=== PATIENT | male | born 1990 | race Caucasian/White ===

== ENCOUNTER 2025-02-07 19:34 | Emergency (ER) | payer SELFPAY ==
[~2025-02-07] VITALS: Ht 172.7 cm; Wt 170.6 kg
[~2025-02-07 19:34] MED LIST: ATOR1TAB21 PO; LASI20TA3 PO; METF-877 PO; SEMA0.257 SQ; VENTAER INH
[2025-02-07] MEDS ORDERED: ATOR40TA75 PO (19:44)
[2025-02-07 21:04] LABS: BASO # 0.1 10^3/uL (0.0-0.2); BASO % 0.9 % (0.0-1.0); EOS # 0.2 10^3/uL (0.0-0.5); EOS % 2.1 % (0.0-3.0); LYMPH # 2.2 10^3/uL (1.5-5.0); LYMPH % 23.9 % (24.0-44.0); MONO # 0.6 10^3/uL (0.0-0.8); MONO % 6.8 % (2.0-8.0); NEUTROPHILS # 6.0 10^3/uL (1.5-8.5); NEUTROPHILS % 66.0 % (36.0-66.0); PLATELET COUNT, AUTOMATED 397 10^3/uL (150-450)
[2025-02-07 21:30] LABS: ALT/SGPT 16 U/L (7.0-40); AST/SGOT 15 U/L (<34); CALCIUM LEVEL 9.2 MG/DL (8.5-10.1); CARBON DIOXIDE LEVEL 28 MMOL/L (20-31); CHLORIDE LEVEL 106 MMOL/L (98-107); CREATININE FOR GFR 1.01 MG/DL (0.70-1.30); GLOMERULAR FILTRATION RATE > 90.0 (>60); POTASSIUM SERUM 4.4 MMOL/L (3.5-5.1); SODIUM LEVEL 142 MMOL/L (136-145)
[2025-02-07] MEDS ORDERED: ISOVUE-370 76% 100 ML VIAL As Ordered ONE (22:21)
[2025-02-07 23:44] LABS: KETONE, URINE AUTO RFX NEGATIVE (NEGATIVE); MUCUS, URINE RFX MODERATE (NEGATIVE); RBC, URINE AUTO RFX 76 /HPF (0-3); SQUAM EPITHELIAL CELL UR AURFX 1 /HPF (0-6)
[2025-02-07 23:54] LABS: LEUKOCYTE ESTERASE UR AUTO RFX 2+ (NEGATIVE); NITRITE, URINE AUTO RFX POSITIVE (NEGATIVE); WBC, URINE AUTO RFX TNTC /HPF (0-3)
[2025-02-08] MEDS ORDERED: CIPR500T39 PO (00:53)
[2025-02-08] MEDS: CIPROFLOXACIN 500 MG TABLET PO ONE (00:58)
[2025-02-08] MEDS: KETOROLAC 30 MG/ML 1 ML VIAL IV ONE (00:59)
[2025-02-08 01:18] VITALS: BP 125/69; TEMP 98.1; O2SAT 96
== END 2025-02-08 01:19 | disposition home or self-care (01) ==
LOC: M ED 19:34
DX: N39.0 Urinary tract infection, site not specified (principal); E11.9 Type 2 diabetes mellitus without complications; Z79.51 Long term (current) use of inhaled steroids; Z79.899 Other long term (current) drug therapy; Z79.84 Long term (current) use of oral hypoglycemic drugs; Z79.2 Long term (current) use of antibiotics
CPT/HCPCS: 74177; 80048; 80076; 81001; 83690; 85025; 87088; 87186; 96374; 99284; J1885; Q9967

== ENCOUNTER 2025-06-27 21:50 | Emergency (ER) | payer SELFPAY ==
[~2025-06-27] VITALS: Ht 172.7 cm; Wt 176.3 kg
[~2025-06-27 21:50] MED LIST changes: +ATOR40TA75 PO; +CIPR500T39 PO
[2025-06-27] MEDS: FLUORESCEIN OPHTH 1 MG STRIP OD ONE (23:55)
[2025-06-27] MEDS: TETRACAINE 0.5% OPHTH SOLN 4ML OD ONE (23:55)
[2025-06-27] MEDS: CIPRODEX OTIC SUSP 7.5 ML AD ONE (23:55)
[2025-06-27] MEDS: AUGMENTIN 875 MG TAB PO ONE (23:56)
[2025-06-28] MEDS ORDERED: CIPR7.5D2 AD (00:18)
[2025-06-28] MEDS ORDERED: AMOX875T2 PO (00:18)
[2025-06-28] MEDS: KETOROLAC 60 MG/2 ML VIAL IM ONE (00:38)
[2025-06-28 00:42] VITALS: BP 114/76; TEMP 98; O2SAT 97
== END 2025-06-28 00:48 | disposition home or self-care (01) ==
LOC: M ED 21:50
DX: H60.8X1 Other otitis externa, right ear (principal); H66.001 Acute suppurative otitis media without spontaneous rupture of ear drum, right ear; H10.31 Unspecified acute conjunctivitis, right eye; E11.9 Type 2 diabetes mellitus without complications; G47.33 Obstructive sleep apnea (adult) (pediatric); Z79.51 Long term (current) use of inhaled steroids; Z79.2 Long term (current) use of antibiotics; Z79.84 Long term (current) use of oral hypoglycemic drugs; Z79.899 Other long term (current) drug therapy
CPT/HCPCS: 96372; 99284; J1885